=== PATIENT | male | born 1970 | race Caucasian/White ===

== ENCOUNTER 2017-02-01 11:31 | Inpatient (IN) | payer OTHER ==
[2017-02-01 12:07] LABS: Basophils % (Auto) 0.9 % (0.0-1.8); Eosinophils % (Auto) 4.1 % (0.0-4.3); Hematocrit 40.8 % (35.5-45.6); Hemoglobin 13.3 gm/dl (11.8-15.2); Mean Corpuscular HGB Conc 33 % (32-34); Mean Corpuscular Volume 79 fl (84-94); Platelet Count 265 K/mm3 (140-440); Red Blood Count 5.15 M/mm3 (3.65-5.03); Red Cell Distribution Width 14.2 % (13.2-15.2); White Blood Count 6.5 K/mm3 (4.5-11.0)
[2017-02-01 12:08] LABS: Mean Corpuscular Hemoglobin 26 pg (28-32)
[2017-02-01 12:24] LABS: Creatine Kinase MB 1.5 ng/mL (0.0-4.0)
[2017-02-01 12:25] LABS: Anion Gap 17 mmol/L; BUN/Creatinine Ratio 23; Blood Urea Nitrogen 14 mg/dL (9-20); Calcium 9.6 mg/dL (8.4-10.2); Carbon Dioxide 29 mmol/L (22-30); Chloride 96.9 mmol/L (98-107); Glucose 263 mg/dL (75-100); Potassium 4.3 mmol/L (3.6-5.0); Sodium 139 mmol/L (137-145)
[2017-02-01 12:50] LABS: Albumin 3.9 g/dL (3.9-5); Albumin/Globulin Ratio 1.2 %; Bilirubin,Direct 0.2 mg/dL (0-0.2); Bilirubin,Indirect 0.7 mg/dL; Bilirubin,Total 0.9 mg/dL (0.1-1.2); Total Protein 7.2 g/dL (6.3-8.2)
[2017-02-01 12:53] LABS: INR 1.03 (0.87-1.13)
[2017-02-01 12:54] LABS: Partial Thromboplastin Time 35.4 Sec. (24.2-36.6)
--- NOTE | 2017-02-01 13:34 | Emergency Department Report ---
ED Chest Pain HPI - General Chief Complaint: Chest Pain Stated Complaint: DIFFICULTY BREATHING Time Seen by Provider: 02/01/17 11:56 Source: patient Mode of arrival: Ambulatory Limitations: No Limitations - History of Present Illness Initial Comments: Patient states that he has had anterior chest tightness for the past 3 days. He complains of nausea, sweating and shortness of breath associated with this chest pain. He states the nausea is not ongoing. However, he does have mild persistent chest pain. The patient essentially response to the affirmative to multiple associated symptoms with his chest pain. History was obtained in Italian. However, the patient is a poor historian in his [place] language. He admits that he has run out of multiple medications "yesterday". She states she was admitted to [facility] in the past for workup of his heart condition. He claims that he was told he needs a heart transplant. However oddly he denies and appears to be totally unfamiliar with the concept of cardiac catheterization. He does not have a stent. He has not been told he had any prior blockages as far as he can tell me. He did not report a history of thyroid problems but does take levo thyroxine. MD Complaint: chest pain -: Gradual, days(s) Onset: during rest Pain Location: substernal Pain Radiation: none Severity: moderate Severity scale (0 -10): 7 Quality: tightness Consistency: now resolved (now improved) Improves With: nothing Worsens With: nothing Context: other (history of heart problems not otherwise specified) re: denies: nausea, vomting, diaphoresis, dyspnea Other Symptoms: denies: cough, fever, syncope Treatments Prior to Arrival: none - Related Data Home Medications Medication Instructions Recorded Confirmed Last Taken Carvedilol [Coreg] 25 mg PO BID 02/01/17 02/01/17 01/31/17 Digoxin [Lanoxin] 0.125 mg PO DAILY 02/01/17 02/01/17 01/31/17 Furosemide [Lasix TAB] 40 mg PO DAILY 02/01/17 02/01/17 01/31/17 Levothyroxine [Synthroid] 75 mcg PO QAM 02/01/17 02/01/17 01/31/17 Lisinopril [Prinivil] 5 mg PO DAILY 02/01/17 02/01/17 01/31/17 Spironolactone [Aldactone] 25 mg PO DAILY 02/01/17 02/01/17 01/31/17 glipiZIDE [Glipizide] 10 mg PO DAILY 02/01/17 02/01/17 01/31/17 Allergies Allergy/AdvReac Type Severity Reaction Status Date / Time No Known Allergies Allergy Unverified 02/01/17 11:42 Heart Score - HEART Score History: Moderately suspicious EKG: Non-specific Age: 45-65 Risk factors: 1-2 risk factors Troponin: < normal limit HEART Score: 4 ED Review of Systems ROS: Stated complaint: DIFFICULTY BREATHING Other details as noted in HPI Constitutional: denies: chills, fever Eyes: denies: eye pain, eye discharge, vision change ENT: denies: ear pain, throat pain Respiratory: denies: cough, shortness of breath, wheezing Cardiovascular: chest pain. denies: palpitations Endocrine: no symptoms reported Gastrointestinal: denies: abdominal pain, nausea, diarrhea Genitourinary: denies: urgency, dysuria Musculoskeletal: denies: back pain, joint swelling, arthralgia Skin: denies: rash, lesions Neurological: denies: headache, weakness, paresthesias Psychiatric: denies: anxiety, depression Hematological/Lymphatic: denies: easy bleeding, easy bruising ED Past Medical Hx - Past Medical History Hx Hypertension: Yes Hx Diabetes: Yes Additional medical history: Enlarged Heart - Surgical History Past Surgical History?: No - Social History Smoking Status: Never Smoker Substance Use Type: None - Medications Home Medications: Home Medications Medication Instructions Recorded Confirmed Last Taken Type Carvedilol [Coreg] 25 mg PO BID 02/01/17 02/01/17 01/31/17 History Digoxin [Lanoxin] 0.125 mg PO DAILY 02/01/17 02/01/17 01/31/17 History Furosemide [Lasix TAB] 40 mg PO DAILY 02/01/17 02/01/17 01/31/17 History Levothyroxine [Synthroid] 75 mcg PO QAM 02/01/17 02/01/17 01/31/17 History Lisinopril [Prinivil] 5 mg PO DAILY 02/01/17 02/01/17 01/31/17 History Spironolactone [Aldactone] 25 mg PO DAILY 02/01/17 02/01/17 01/31/17 History glipiZIDE [Glipizide] 10 mg PO DAILY 02/01/17 02/01/17 01/31/17 History ED Physical Exam - General Limitations: No Limitations General appearance: alert, in no apparent distress - Head Head exam: Present: atraumatic, normocephalic - Eye Eye exam: Present: normal appearance. Absent: scleral icterus - ENT ENT exam: Present: mucous membranes moist - Neck Neck exam: Present: normal inspection. Absent: tenderness, meningismus - Respiratory Respiratory exam: Present: normal lung sounds bilaterally. Absent: respiratory distress - Cardiovascular Cardiovascular Exam: Present: regular rate, normal rhythm. Absent: systolic murmur, diastolic murmur, rubs, gallop - GI/Abdominal GI/Abdominal exam: Present: soft, normal bowel sounds. Absent: distended, tenderness, guarding, rebound, rigid - Rectal Rectal exam: Present: deferred - Extremities Exam Extremities exam: Present: normal inspection - Back Exam Back exam: Present: normal inspection - Neurological Exam Neurological exam: Present: alert, oriented X3, CN II-XII intact. Absent: motor sensory deficit - Psychiatric Psychiatric exam: Present: normal affect, normal mood - Skin Skin exam: Present: warm, dry, intact, normal color. Absent: rash ED Course Vital Signs 02/01/17 02/01/17 02/01/17 11:36 12:15 12:30 Temperature 97.7 F Pulse Rate 84 98 H 95 H Respiratory 18 22 20 Rate Blood Pressure 116/72 125/82 126/74 O2 Sat by Pulse 95 97 98 Oximetry 02/01/17 13:00 Temperature Pulse Rate 88 Respiratory 23 Rate Blood Pressure 126/80 O2 Sat by Pulse Oximetry - Reevaluation(s) Reevaluation #1: Patient is given aspirin. He is admitted to the hospitalist service for further care and evaluation. Personally I would suspect he has a nonischemic cardiomyopathy. However we do not have benefit of his prior records. I do not think his left bundle branch block is new. However the patient has no knowledge of what his prior EKG showed more even what an EKG is despite just having one. 02/01/17 14:39 02/01/17 14:39 DAVID score - David Score Age > 65: (0) No Aspirin use within the Past 7 Days: (1) Yes 3 or more CAD Risk Factors: (0) No 2 or more Angina events in past 24 hrs: (0) No Known CAD with more than 50% Stenosis: (0) No Elevated Cardiac Markers: (0) No ST Deviation Greater than 0.5mm: (0) No DAVID Score: 1 ED Medical Decision Making - Lab Data Result diagrams: 02/01/17 11:51 02/01/17 11:51 Laboratory Results - last 24 hr 02/01/17 02/01/17 02/01/17 11:51 11:51 11:51 WBC 6.5 RBC 5.15 H Hgb 13.3 Hct 40.8 MCV 79 L MCH 26 L MCHC 33 RDW 14.2 Plt Count 265 Lymph % (Auto) 30.3 Falls % (Auto) 13.4 H Eos % (Auto) 4.1 Baso % (Auto) 0.9 Lymph # 2.0 Falls # 0.9 H Eos # 0.3 Baso # 0.1 Seg Neutrophils % 51.3 Seg Neutrophils # 3.3 PT INR APTT Sodium 139 Potassium 4.3 Chloride 96.9 L Carbon Dioxide 29 Anion Gap 17 BUN 14 Creatinine 0.6 L Estimated GFR > 60 BUN/Creatinine Ratio 23 Glucose 263 H Calcium 9.6 Magnesium Total Bilirubin Direct Bilirubin Indirect Bilirubin AST ALT Alkaline Phosphatase Total Creatine Kinase CK-MB (CK-2) CK-MB (CK-2) Rel Index Troponin T < 0.010 NT-Pro-B Natriuret Pep 2856 H Total Protein Albumin Albumin/Globulin Ratio TSH Free T4 02/01/17 02/01/17 02/01/17 11:51 11:51 11:51 WBC RBC Hgb Hct MCV MCH MCHC RDW Plt Count Lymph % (Auto) Falls % (Auto) Eos % (Auto) Baso % (Auto) Lymph # Falls # Eos # Baso # Seg Neutrophils % Seg Neutrophils # PT 14.0 INR 1.03 APTT 35.4 Sodium Potassium Chloride Carbon Dioxide Anion Gap BUN Creatinine Estimated GFR BUN/Creatinine Ratio Glucose Calcium Magnesium Total Bilirubin Direct Bilirubin Indirect Bilirubin AST ALT Alkaline Phosphatase Total Creatine Kinase 53 L CK-MB (CK-2) 1.5 CK-MB (CK-2) Rel Index 2.8 Troponin T NT-Pro-B Natriuret Pep Total Protein Albumin Albumin/Globulin Ratio TSH < 0.005 L Free T4 4.08 H 02/01/17 02/01/17 11:51 11:51 WBC RBC Hgb Hct MCV MCH MCHC RDW Plt Count Lymph % (Auto) Falls % (Auto) Eos % (Auto) Baso % (Auto) Lymph # Falls # Eos # Baso # Seg Neutrophils % Seg Neutrophils # PT INR APTT Sodium Potassium Chloride Carbon Dioxide Anion Gap BUN Creatinine Estimated GFR BUN/Creatinine Ratio Glucose Calcium Magnesium 2.00 Total Bilirubin 0.90 Direct Bilirubin 0.2 Indirect Bilirubin 0.7 AST 16 ALT 23 Alkaline Phosphatase 115 Total Creatine Kinase CK-MB (CK-2) CK-MB (CK-2) Rel Index Troponin T NT-Pro-B Natriuret Pep Total Protein 7.2 Albumin 3.9 Albumin/Globulin Ratio 1.2 TSH Free T4 - EKG Data -: EKG Interpreted by Me EKG shows normal: sinus rhythm Rate: normal - EKG Data When compared to previous EKG there are: previous EKG unavailable Interpretation: other (left bundle branch block) - Radiology Data interpreted by me: Chest x-ray shows no acute process Critical care attestation.: If time is entered above; I have spent that time in minutes in the direct care of this critically ill patient, excluding procedure time. ED Disposition Clinical Impression: Left bundle branch block Chest pain Qualifiers: Chest pain type: unspecified Qualified Code(s): R07.9 - Chest pain, unspecified Cardiomyopathy Qualifiers: Cardiomyopathy type: unspecified Qualified Code(s): I42.9 - Cardiomyopathy, unspecified Disposition: OP ADMIT IP TO THIS HOSP Is pt being admited?: Yes Does the pt Need Aspirin: Yes Condition: Stable Instructions: Chest Pain (ED) Time of Disposition: 14:42
--- NOTE | 2017-02-01 13:35 | XRay Report ---
Single view chest: History: Difficulty breathing. Findings: Cardiomegaly. Trachea is midline. Mild pulmonary venous congestion. No consolidation or pleural effusion. Impression: Cardiomegaly with mild pulmonary venous congestion.
[2017-02-01] MEDS ORDERED: ASPIRIN PO ONE (14:38)
[2017-02-01 15:16] LABS: Bilirubin,Urine NEG (Negative); Blood,Urine NEG (Negative); Ketones,Urine NEG (Negative); Leukocyte Esterase,Urine NEG (Negative); Nitrite,Urine NEG (Negative); Protein,Urine <15 mg/dL mg/dL (Negative); RBC,Urine < 1.0 /HPF (0.0-6.0); WBC,Urine < 1.0 /HPF (0.0-6.0)
--- NOTE | 2017-02-01 19:46 | History and Physical Report ---
History of Present Illness Date of examination: 02/01/17 Date of admission: 02/01/17 14:07 Chief complaint: CC :Chest pain for 3 days History of present illness: - History of Present Illness Initial Comments: Patient states that he has had anterior chest tightness for the past 3 days. He complains of nausea, sweating and shortness of breath associated with this chest pain. He states the nausea is not ongoing. However, he does have mild persistent chest pain. The patient essentially response to the affirmative to multiple associated symptoms with his chest pain. History was obtained in Maltese. However, the patient is a poor historian in his [place] language. He admits that he has run out of multiple medications "yesterday". Past Medical History Hx Hypertension: Yes Hx Diabetes: Yes CHF Hypothyroidism and Enlarged Heart - Surgical History Past Surgical History?: No - Social History Smoking Status: Never Smoker Substance Use Type: None - Medications Home Medications: Home Medications Medication Instructions Recorded Confirmed Last Taken Type Carvedilol [Coreg] 25 mg PO BID 02/01/17 02/01/17 01/31/17 History Digoxin [Lanoxin] 0.125 mg PO DAILY 02/01/17 02/01/17 01/31/17 History Furosemide [Lasix TAB] 40 mg PO DAILY 02/01/17 02/01/17 01/31/17 History Levothyroxine [Synthroid] 75 mcg PO QAM 02/01/17 02/01/17 01/31/17 History Lisinopril [Prinivil] 5 mg PO DAILY 02/01/17 02/01/17 01/31/17 History Spironolactone [Aldactone] 25 mg PO DAILY 02/01/17 02/01/17 01/31/17 History glipiZIDE [Glipizide] 10 mg PO DAILY 02/01/17 02/01/17 01/31/17 History Review of Systems Stated complaint: DIFFICULTY BREATHING Other details as noted in HPI Constitutional: denies: chills, fever Eyes: denies: eye pain, eye discharge, vision change ENT: denies: ear pain, throat pain Respiratory: denies: cough, shortness of breath, wheezing Cardiovascular: chest pain. denies: palpitations Endocrine: no symptoms reported Gastrointestinal: denies: abdominal pain, nausea, diarrhea Genitourinary: denies: urgency, dysuria Musculoskeletal: denies: back pain, joint swelling, arthralgia Skin: denies: rash, lesions Neurological: denies: headache, weakness, paresthesias Psychiatric: denies: anxiety, depression Hematological/Lymphatic: denies: easy bleeding, easy bruising Medications and Allergies Allergies Allergy/AdvReac Type Severity Reaction Status Date / Time No Known Allergies Allergy Unverified 02/01/17 11:42 Home Medications Medication Instructions Recorded Confirmed Last Taken Type Carvedilol [Coreg] 25 mg PO BID 02/01/17 02/01/17 01/31/17 History Digoxin [Lanoxin] 0.125 mg PO DAILY 02/01/17 02/01/17 01/31/17 History Furosemide [Lasix TAB] 40 mg PO DAILY 02/01/17 02/01/17 01/31/17 History Levothyroxine [Synthroid] 75 mcg PO QAM 02/01/17 02/01/17 01/31/17 History Lisinopril [Prinivil] 5 mg PO DAILY 02/01/17 02/01/17 01/31/17 History Spironolactone [Aldactone] 25 mg PO DAILY 02/01/17 02/01/17 01/31/17 History glipiZIDE [Glipizide] 10 mg PO DAILY 02/01/17 02/01/17 01/31/17 History Exam - Constitutional Vitals: Temp Pulse Resp BP Pulse Ox 98 F 99 H 20 125/69 96 02/01/17 19:39 02/01/17 19:39 02/01/17 19:39 02/01/17 19:39 02/01/17 19:39 General appearance: Present: no acute distress, well-nourished - EENT Eyes: Present: PERRL ENT: hearing intact, clear oral mucosa - Neck Neck: Present: supple, normal ROM - Respiratory Respiratory effort: normal Respiratory: bilateral: CTA - Cardiovascular Heart rate: 80 Rhythm: regular Heart Sounds: Present: S1 & S2. Absent: rub, click - Extremities Extremities: no ischemia, pulses intact, pulses symmetrical, No edema Peripheral Pulses: within normal limits - Abdominal General gastrointestinal: Present: soft, non-tender, non-distended, normal bowel sounds Male genitourinary: Present: normal - Integumentary Integumentary: Present: clear, warm, dry - Musculoskeletal Musculoskeletal: gait normal, strength equal bilaterally - Psychiatric Psychiatric: appropriate mood/affect, intact judgment & insight - Neurologic Neurologic: CNII-XII intact, moves all extremities - Allied Health Allied health notes reviewed: nursing, case management Results - Labs CBC & Chem 7: 02/02/17 04:17 02/02/17 04:17 Labs: Laboratory Last Values WBC 6.5 K/mm3 (4.5-11.0) 02/01/17 11:51 RBC 5.15 M/mm3 (3.65-5.03) H 02/01/17 11:51 Hgb 13.3 gm/dl (11.8-15.2) 02/01/17 11:51 Hct 40.8 % (35.5-45.6) 02/01/17 11:51 MCV 79 fl (84-94) L 02/01/17 11:51 MCH 26 pg (28-32) L 02/01/17 11:51 MCHC 33 % (32-34) 02/01/17 11:51 RDW 14.2 % (13.2-15.2) 02/01/17 11:51 Plt Count 265 K/mm3 (140-440) 02/01/17 11:51 Lymph % (Auto) 30.3 % (13.4-35.0) 02/01/17 11:51 [place] % (Auto) 13.4 % (0.0-7.3) H 02/01/17 11:51 Eos % (Auto) 4.1 % (0.0-4.3) 02/01/17 11:51 Baso % (Auto) 0.9 % (0.0-1.8) 02/01/17 11:51 Lymph # 2.0 K/mm3 (1.2-5.4) 02/01/17 11:51 [place] # 0.9 K/mm3 (0.0-0.8) H 02/01/17 11:51 Eos # 0.3 K/mm3 (0.0-0.4) 02/01/17 11:51 Baso # 0.1 K/mm3 (0.0-0.1) 02/01/17 11:51 Seg Neutrophils % 51.3 % (40.0-70.0) 02/01/17 11:51 Seg Neutrophils # 3.3 K/mm3 (1.8-7.7) 02/01/17 11:51 PT 14.0 Sec. (12.2-14.9) 02/01/17 11:51 INR 1.03 (0.87-1.13) 02/01/17 11:51 APTT 35.4 Sec. (24.2-36.6) 02/01/17 11:51 Sodium 139 mmol/L (137-145) 02/01/17 11:51 Potassium 4.3 mmol/L (3.6-5.0) 02/01/17 11:51 Chloride 96.9 mmol/L (98-107) L 02/01/17 11:51 Carbon Dioxide 29 mmol/L (22-30) 02/01/17 11:51 Anion Gap 17 mmol/L 02/01/17 11:51 BUN 14 mg/dL (9-20) 02/01/17 11:51 Creatinine 0.6 mg/dL (0.8-1.5) L 02/01/17 11:51 Estimated GFR > 60 ml/min 02/01/17 11:51 BUN/Creatinine Ratio 23 % 02/01/17 11:51 Glucose 263 mg/dL (75-100) H 02/01/17 11:51 Calcium 9.6 mg/dL (8.4-10.2) 02/01/17 11:51 Magnesium 2.00 mg/dL (1.7-2.3) 02/01/17 11:51 Total Bilirubin 0.90 mg/dL (0.1-1.2) 02/01/17 11:51 Direct Bilirubin 0.2 mg/dL (0-0.2) 02/01/17 11:51 Indirect Bilirubin 0.7 mg/dL 02/01/17 11:51 AST 16 units/L (5-40) 02/01/17 11:51 ALT 23 units/L (7-56) 02/01/17 11:51 Alkaline Phosphatase 115 units/L (35-129) 02/01/17 11:51 Total Creatine Kinase 53 units/L (55-170) L 02/01/17 11:51 CK-MB (CK-2) 1.5 ng/mL (0.0-4.0) 02/01/17 11:51 CK-MB (CK-2) Rel Index 2.8 (0-4) 02/01/17 11:51 Troponin T < 0.010 ng/mL (0.00-0.029) 02/01/17 18:34 NT-Pro-B Natriuret Pep 2856 pg/mL (0-450) H 02/01/17 11:51 Total Protein 7.2 g/dL (6.3-8.2) 02/01/17 11:51 Albumin 3.9 g/dL (3.9-5) 02/01/17 11:51 Albumin/Globulin Ratio 1.2 % 02/01/17 11:51 TSH < 0.005 mlU/mL (0.270-4.200) L 02/01/17 11:51 Free T4 4.08 ng/dL (0.76-1.46) H 02/01/17 11:51 Urine Color Yellow (Yellow) 02/01/17 14:56 Urine Turbidity Clear (Clear) 02/01/17 14:56 Urine pH 6.0 (5.0-7.0) 02/01/17 14:56 Ur Specific [place] 1.022 (1.003-1.030) 02/01/17 14:56 Urine Protein <15 mg/dl mg/dL (Negative) 02/01/17 14:56 Urine Glucose (UA) >=500 mg/dL (Negative) 02/01/17 14:56 Urine Ketones Neg mg/dL (Negative) 02/01/17 14:56 Urine Blood Neg (Negative) 02/01/17 14:56 Urine Nitrite Neg (Negative) 02/01/17 14:56 Urine Bilirubin Neg (Negative) 02/01/17 14:56 Urine Urobilinogen 2.0 mg/dL (<2.0) 02/01/17 14:56 Ur Leukocyte Esterase Neg (Negative) 02/01/17 14:56 Urine WBC (Auto) < 1.0 /HPF (0.0-6.0) 02/01/17 14:56 Urine RBC (Auto) < 1.0 /HPF (0.0-6.0) 02/01/17 14:56 Digoxin 0.4 ng/mL (0.9-2.0) L 02/01/17 11:50 Short CBC 02/01/17 02/02/17 Range/Units 11:51 04:17 WBC 6.5 5.8 (4.5-11.0) K/mm3 Hgb 13.3 12.6 (11.8-15.2) gm/dl Hct 40.8 38.8 (35.5-45.6) % Plt Count 265 235 (140-440) K/mm3 BMP 02/01/17 02/02/17 11:51 04:17 Sodium 139 138 Potassium 4.3 4.3 Chloride 96.9 L 97.9 L Carbon Dioxide 29 26 BUN 14 17 Creatinine 0.6 L 0.7 L Glucose 263 H 297 H Calcium 9.6 9.5 Cardiac Enzymes 02/01/17 02/01/17 02/01/17 Range/Units 11:51 11:51 14:45 Total Creatine Kinase 53 L (55-170) units/L CK-MB (CK-2) 1.5 (0.0-4.0) ng/mL Troponin T < 0.010 < 0.010 (0.00-0.029) ng/mL 02/01/17 02/01/17 02/01/17 Range/Units 18:34 21:55 22:00 Total Creatine Kinase 45 L (55-170) units/L CK-MB (CK-2) 1.3 (0.0-4.0) ng/mL Troponin T < 0.010 < 0.010 (0.00-0.029) ng/mL 02/02/17 02/02/17 Range/Units 04:17 04:17 Total Creatine Kinase 41 L (55-170) units/L CK-MB (CK-2) 1.4 (0.0-4.0) ng/mL Troponin T < 0.010 (0.00-0.029) ng/mL Liver Function 02/01/17 02/02/17 Range/Units 11:51 04:17 Total Bilirubin 0.90 0.70 (0.1-1.2) mg/dL Direct Bilirubin 0.2 (0-0.2) mg/dL AST 16 15 (5-40) units/L ALT 23 21 (7-56) units/L Alkaline Phosphatase 115 99 (35-129) units/L Albumin 3.9 3.5 L (3.9-5) g/dL Urine 02/01/17 Range/Units 14:56 Urine Color Yellow (Yellow) Urine pH 6.0 (5.0-7.0) Ur Specific [place] 1.022 (1.003-1.030) Urine Protein <15 mg/dl (Negative) mg/dL Urine Glucose (UA) >=500 (Negative) mg/dL - Imaging and Cardiology EKG: report reviewed Chest x-ray: report reviewed (Cardiomegaly with mild PVC) Assessment and Plan Advance Directives: Yes (Full code) VTE prophylaxis?: Chemical Plan of care discussed with patient/family: Yes - Patient Problems (1) Chest pain Current Visit: Yes Status: Acute Qualifiers: Chest pain type: unspecified Qualified Code(s): R07.9 - Chest pain, unspecified Plan to address problem: Chest pain w/u Cardiac enzymes and Lexiscan ordered. Diff Dx of Costochondritis and Reflux esophagitis. (2) HTN (hypertension) Current Visit: Yes Status: Chronic Qualifiers: Hypertension type: essential hypertension Qualified Code(s): I10 - Essential (primary) hypertension Plan to address problem: Cont antihypertensive (3) T2DM (type 2 diabetes mellitus) Current Visit: Yes Status: Chronic Qualifiers: Diabetes mellitus complication status: without complication Plan to address problem: Contiinue oral hypoglycemics and coverage (4) CHF (congestive heart failure) Current Visit: Yes Status: Chronic Qualifiers: Congestive heart failure type: combined Plan to address problem: Cont Lasix and Digoxin (5) Hypothyroidism (acquired) Current Visit: Yes Status: Chronic Plan to address problem: Cont Levothyoxine (6) DVT prophylaxis Current Visit: Yes Status: Acute Plan to address problem: On Lovenox
[2017-02-01] MEDS ORDERED: MILK OF MAGNESIA PO PRN (21:11)
[2017-02-01] MEDS ORDERED: PERCOCET 5/325 PO PRN (21:11)
[2017-02-01] MEDS ORDERED: AMBIEN PO PRN (21:11)
[2017-02-01] MEDS ORDERED: DILAUDID IV PRN (21:11)
[2017-02-01] MEDS ORDERED: TYLENOL PO PRN (21:11)
[2017-02-01] MEDS ORDERED: DULCOLAX PR PRN (21:11)
[2017-02-01] MEDS ORDERED: ZOFRAN IV PRN (21:11)
[2017-02-01] MEDS: ZESTRIL PO SCH (21:36)
[2017-02-01] MEDS: ALDACTONE PO SCH (22:37)
[2017-02-01] MEDS: COREG PO SCH (22:37)
[2017-02-01] MEDS: LASIX PO SCH (22:38)
[2017-02-01 22:53] LABS: Creatine Kinase MB 1.3 ng/mL (0.0-4.0)
[2017-02-02] MEDS: SYNTHROID PO SCH (05:08)
[2017-02-02 05:43] LABS: Basophils % (Auto) 0.5 % (0.0-1.8); Eosinophils % (Auto) 4.5 % (0.0-4.3); Hematocrit 38.8 % (35.5-45.6); Hemoglobin 12.6 gm/dl (11.8-15.2); Mean Corpuscular HGB Conc 33 % (32-34); Mean Corpuscular Volume 79 fl (84-94); Platelet Count 235 K/mm3 (140-440); Red Blood Count 4.88 M/mm3 (3.65-5.03); Red Cell Distribution Width 14.3 % (13.2-15.2); White Blood Count 5.8 K/mm3 (4.5-11.0)
[2017-02-02 05:46] LABS: Mean Corpuscular Hemoglobin 26 pg (28-32)
[2017-02-02 05:50] LABS: Creatine Kinase MB 1.4 ng/mL (0.0-4.0)
[2017-02-02 05:51] LABS: Alanine Aminotransferase 21 units/L (7-56); Albumin 3.5 g/dL (3.9-5); Albumin/Globulin Ratio 1.2 %; Alkaline Phosphatase 99 units/L (35-129); Anion Gap 18 mmol/L; BUN/Creatinine Ratio 24; Blood Urea Nitrogen 17 mg/dL (9-20); Calcium 9.5 mg/dL (8.4-10.2); Carbon Dioxide 26 mmol/L (22-30); Chloride 97.9 mmol/L (98-107); Glucose 297 mg/dL (75-100); Potassium 4.3 mmol/L (3.6-5.0); Sodium 138 mmol/L (137-145); Total Protein 6.5 g/dL (6.3-8.2)
[2017-02-02] MEDS ORDERED: LEXISCAN IV ONE ×2 (08:10→08:43)
--- NOTE | 2017-02-02 09:41 | Consultation ---
History of Present Illness Consult date: 02/02/17 Consult reason: chest pain History of present illness: Patient states that he has had anterior chest tightness for the past 3 days. He complains of nausea, sweating and shortness of breath associated with this chest pain. Pain was substernal lasting several hours, but has now resolved. Patient denies orthopnea, pnd, palpitations, dizziness and syncope. Past History Past Medical History: diabetes, hypertension, other (enlarged heart) Past Surgical History: No surgical history Social history: denies: smoking, alcohol abuse Family history: no significant family history Medications and Allergies Allergies Allergy/AdvReac Type Severity Reaction Status Date / Time No Known Allergies Allergy Unverified 02/01/17 11:42 Home Medications Medication Instructions Recorded Confirmed Last Taken Type Carvedilol [Coreg] 25 mg PO BID 02/01/17 02/01/17 01/31/17 History Digoxin [Lanoxin] 0.125 mg PO DAILY 02/01/17 02/01/17 01/31/17 History Furosemide [Lasix TAB] 40 mg PO DAILY 02/01/17 02/01/17 01/31/17 History Levothyroxine [Synthroid] 75 mcg PO QAM 02/01/17 02/01/17 01/31/17 History Lisinopril [Prinivil] 5 mg PO DAILY 02/01/17 02/01/17 01/31/17 History Spironolactone [Aldactone] 25 mg PO DAILY 02/01/17 02/01/17 01/31/17 History glipiZIDE [Glipizide] 10 mg PO DAILY 02/01/17 02/01/17 01/31/17 History Active Meds: Active Medications Acetaminophen (Tylenol) 650 mg PO Q4H PRN PRN Reason: Pain MILD(1-3)/Fever >100.5/LOPEZ Bisacodyl (Dulcolax) 10 mg [place] QDAY PRN PRN Reason: Constipation unrelieved by MOM Carvedilol (Coreg) 25 mg PO BID [facility] Last Admin: 02/01/17 22:37 Dose: 25 mg Digoxin (Lanoxin) 0.125 mg PO DAILY [facility] Furosemide (Lasix) 40 mg PO DAILY [facility] Last Admin: 02/01/17 22:38 Dose: 40 mg Glipizide (Glucotrol) 10 mg PO DAILY [facility] Hydromorphone HCl (Dilaudid) 0.5 mg IV Q3H PRN PRN Reason: Pain , Severe (7-10) Influenza Virus Vaccine Quadrival (Fluarix Quad [id number](36 Mos+) 0.5 ml IM .ONCE ONE Stop: 02/02/17 12:01 Insulin Aspart (Novolog) 0 units SUB-Q ACHS [facility] PRN Reason: Protocol Levothyroxine Sodium (Synthroid) 75 mcg PO 0600 [facility] Last Admin: 02/02/17 05:08 Dose: 75 mcg Lisinopril (Zestril) 5 mg PO DAILY [facility] Last Admin: 02/01/17 21:36 Dose: 5 mg Magnesium Hydroxide (Milk Of Magnesia) 30 ml PO Q4H PRN PRN Reason: Constipation Ondansetron HCl (Zofran) 4 mg IV Q8H PRN PRN Reason: N/V unrelieved by Reglan Oxycodone/Acetaminophen (Percocet 5/325) 1 tab PO Q6H PRN PRN Reason: Pain, Moderate (4-6) Last Admin: 02/01/17 22:38 Dose: 1 tab Pneumococcal Polyvalent Vaccine (Pneumovax 23) 0.5 ml IM .ONCE ONE Stop: 02/02/17 12:01 Spironolactone (Aldactone) 25 mg PO DAILY [facility] Last Admin: 02/01/17 22:37 Dose: 25 mg Zolpidem Tartrate (Ambien) 5 mg PO QHS PRN PRN Reason: Insomnia Review of Systems All systems: negative (pertinent positives in HPI) Physical Examination Vital Signs Temp Pulse Resp BP Pulse Ox 97.7 F 84 18 116/72 95 02/01/17 11:36 02/01/17 11:36 02/01/17 11:36 02/01/17 11:36 02/01/17 11:36 General appearance: no acute distress HEENT: Positive: PERRL, EOMI Cardiac: Positive: Reg Rate and Rhythm, S1/S2 Lungs: Positive: clear to auscultation Abdomen: Positive: Soft, Active Bowel Sounds Extremities: Present: normal Results 02/02/17 04:17 02/02/17 04:17 Cardiac Enzymes 02/01/17 02/01/17 02/01/17 Range/Units 11:51 11:51 22:00 AST 16 (5-40) units/L CK-MB (CK-2) 1.5 1.3 (0.0-4.0) ng/mL 02/02/17 02/02/17 Range/Units 04:17 04:17 AST 15 (5-40) units/L CK-MB (CK-2) 1.4 (0.0-4.0) ng/mL Coagulation 02/01/17 Range/Units 11: PT 14.0 (12.2-14.9) Sec. INR 1.03 (0.87-1.13) APTT 35.4 (24.2-36.6) Sec. CBC 02/01/17 02/02/17 Range/Units 11: 04:17 WBC 6.5 5.8 (4.5-11.0) K/mm3 RBC 5.15 H 4.88 (3.65-5.03) M/mm3 Hgb 13.3 12.6 (11.8-15.2) gm/dl Hct 40.8 38.8 (35.5-45.6) % Plt Count 265 235 (140-440) K/mm3 Lymph # 2.0 2.2 (1.2-5.4) K/mm3 [place] # 0.9 H 0.8 (0.0-0.8) K/mm3 Eos # 0.3 0.3 (0.0-0.4) K/mm3 Baso # 0.1 0.0 (0.0-0.1) K/mm3 Comprehensive Metabolic Panel 02/01/17 02/01/17 02/02/17 Range/Units 11: 11:51 04:17 Sodium 139 138 (137-145) mmol/L Potassium 4.3 4.3 (3.6-5.0) mmol/L Chloride 96.9 L 97.9 L (98-107) mmol/L Carbon Dioxide 29 26 (22-30) mmol/L BUN 14 17 (9-20) mg/dL Creatinine 0.6 L 0.7 L (0.8-1.5) mg/dL Glucose 263 H 297 H (75-100) mg/dL Calcium 9.6 9.5 (8.4-10.2) mg/dL Direct Bilirubin 0.2 (0-0.2) mg/dL Indirect Bilirubin 0.7 mg/dL AST 16 15 (5-40) units/L ALT 23 21 (7-56) units/L Alkaline Phosphatase 115 99 (35-129) units/L Total Protein 7.2 6.5 (6.3-8.2) g/dL Albumin 3.9 3.5 L (3.9-5) g/dL Assessment and Plan chest pain - troponin negative. chest pain resolved. CV risk factors include HTN , DM2. Plan for stress test today. DM2 - management per primary. HTN - maximize medical therapy "enlarged heart" - check echo
[2017-02-02] MEDS: ZESTRIL PO SCH (11:23)
[2017-02-02] MEDS: LASIX PO SCH (11:24)
[2017-02-02] MEDS: ALDACTONE PO SCH (11:24)
[2017-02-02] MEDS: LANOXIN PO SCH (11:24)
[2017-02-02] MEDS: COREG PO SCH ×2 (11:25→21:47)
[2017-02-02] MEDS: GLUCOTROL PO SCH (11:25)
--- NOTE | 2017-02-02 11:48 | Progress Note ---
Assessment and Plan Assessment and plan: Chest pain - troponin negative. chest pain resolved. CV risk factors include HTN , DM2. Plan for stress test today. DM2. Continue Accu-Cheks and sliding scale insulin. Hypertension. Continue antihypertensive medications. History of cardiomegaly. Follow-up echocardiogram. History Interval history: No new issues overnight. Hospitalist Physical - Constitutional Vitals: Temp Pulse Resp BP Pulse Ox 98.2 F 97 H 18 94/52 97 02/02/17 04:41 02/02/17 09:52 02/02/17 04:41 02/02/17 09:52 02/02/17 04:41 General appearance: Present: no acute distress - EENT Eyes: Present: PERRL, EOM intact ENT: hearing intact, clear oral mucosa, dentition normal - Neck Neck: Present: supple, normal ROM - Respiratory Respiratory effort: normal Respiratory: bilateral: CTA - Cardiovascular Rhythm: regular Heart Sounds: Present: S1 & S2. Absent: gallop, rub - Extremities Extremities: no ischemia, No edema, Full ROM - Abdominal General gastrointestinal: soft, non-tender, non-distended, normal bowel sounds - Integumentary Integumentary: Present: clear, warm, dry - Neurologic Neurologic: CNII-XII intact, moves all extremities Results - Labs CBC & Chem 7: 02/02/17 04:17 02/02/17 04:17 Labs: Laboratory Last Values WBC 5.8 K/mm3 (4.5-11.0) 02/02/17 04:17 RBC 4.88 M/mm3 (3.65-5.03) 02/02/17 04:17 Hgb 12.6 gm/dl (11.8-15.2) 02/02/17 04:17 Hct 38.8 % (35.5-45.6) 02/02/17 04:17 MCV 79 fl (84-94) L 02/02/17 04:17 MCH 26 pg (28-32) L 02/02/17 04:17 MCHC 33 % (32-34) 02/02/17 04:17 RDW 14.3 % (13.2-15.2) 02/02/17 04:17 Plt Count 235 K/mm3 (140-440) 02/02/17 04:17 Lymph % (Auto) 37.8 % (13.4-35.0) H 02/02/17 04:17 [place] % (Auto) 13.3 % (0.0-7.3) H 02/02/17 04:17 Eos % (Auto) 4.5 % (0.0-4.3) H 02/02/17 04:17 Baso % (Auto) 0.5 % (0.0-1.8) 02/02/17 04:17 Lymph # 2.2 K/mm3 (1.2-5.4) 02/02/17 04:17 [place] # 0.8 K/mm3 (0.0-0.8) 02/02/17 04:17 Eos # 0.3 K/mm3 (0.0-0.4) 02/02/17 04:17 Baso # 0.0 K/mm3 (0.0-0.1) 02/02/17 04:17 Seg Neutrophils % 43.9 % (40.0-70.0) 02/02/17 04:17 Seg Neutrophils # 2.5 K/mm3 (1.8-7.7) 02/02/17 04:17 PT 14.0 Sec. (12.2-14.9) 02/01/17 11:51 INR 1.03 (0.87-1.13) 02/01/17 11:51 APTT 35.4 Sec. (24.2-36.6) 02/01/17 11:51 Sodium 138 mmol/L (137-145) 02/02/17 04:17 Potassium 4.3 mmol/L (3.6-5.0) 02/02/17 04:17 Chloride 97.9 mmol/L (98-107) L 02/02/17 04:17 Carbon Dioxide 26 mmol/L (22-30) 02/02/17 04:17 Anion Gap 18 mmol/L 02/02/17 04:17 BUN 17 mg/dL (9-20) 02/02/17 04:17 Creatinine 0.7 mg/dL (0.8-1.5) L 02/02/17 04:17 Estimated GFR > 60 ml/min 02/02/17 04:17 BUN/Creatinine Ratio 24 % 02/02/17 04:17 Glucose 297 mg/dL (75-100) H 02/02/17 04:17 POC Glucose 261 (70-105) H 02/01/17 22:11 Hemoglobin A1c 11.8 % (4-6) H 02/01/17 22:00 Calcium 9.5 mg/dL (8.4-10.2) 02/02/17 04:17 Magnesium 2.00 mg/dL (1.7-2.3) 02/01/17 11:51 Total Bilirubin 0.70 mg/dL (0.1-1.2) 02/02/17 04:17 Direct Bilirubin 0.2 mg/dL (0-0.2) 02/01/17 11:51 Indirect Bilirubin 0.7 mg/dL 02/01/17 11:51 AST 15 units/L (5-40) 02/02/17 04:17 ALT 21 units/L (7-56) 02/02/17 04:17 Alkaline Phosphatase 99 units/L (35-129) 02/02/17 04:17 Total Creatine Kinase 41 units/L (55-170) L 02/02/17 04:17 CK-MB (CK-2) 1.4 ng/mL (0.0-4.0) 02/02/17 04:17 CK-MB (CK-2) Rel Index 3.4 (0-4) 02/02/17 04:17 Troponin T < 0.010 ng/mL (0.00-0.029) 02/02/17 04:17 NT-Pro-B Natriuret Pep 2856 pg/mL (0-450) H 02/01/17 11:51 Total Protein 6.5 g/dL (6.3-8.2) 02/02/17 04:17 Albumin 3.5 g/dL (3.9-5) L 02/02/17 04:17 Albumin/Globulin Ratio 1.2 % 02/02/17 04:17 TSH < 0.005 mlU/mL (0.270-4.200) L 02/01/17 11:51 Free T4 4.08 ng/dL (0.76-1.46) H 02/01/17 11:51 Urine Color Yellow (Yellow) 02/01/17 14:56 Urine Turbidity Clear (Clear) 02/01/17 14:56 Urine pH 6.0 (5.0-7.0) 02/01/17 14:56 Ur Specific [place] 1.022 (1.003-1.030) 02/01/17 14:56 Urine Protein <15 mg/dl mg/dL (Negative) 02/01/17 14:56 Urine Glucose (UA) >=500 mg/dL (Negative) 02/01/17 14:56 Urine Ketones Neg mg/dL (Negative) 02/01/17 14:56 Urine Blood Neg (Negative) 02/01/17 14:56 Urine Nitrite Neg (Negative) 02/01/17 14:56 Urine Bilirubin Neg (Negative) 02/01/17 14:56 Urine Urobilinogen 2.0 mg/dL (<2.0) 02/01/17 14:56 Ur Leukocyte Esterase Neg (Negative) 02/01/17 14:56 Urine WBC (Auto) < 1.0 /HPF (0.0-6.0) 02/01/17 14:56 Urine RBC (Auto) < 1.0 /HPF (0.0-6.0) 02/01/17 14:56 Digoxin 0.4 ng/mL (0.9-2.0) L 02/01/17 11:50
[2017-02-02] MEDS ORDERED: Fluarix Quad 2017-2018(36 MOS+ IM ONE (12:00)
[2017-02-02] MEDS ORDERED: PNEUMOVAX 23 IM ONE (12:00)
[2017-02-02] MEDS: NOVOLOG SUB-Q SCH ×3 (13:06→21:49)
[2017-02-02 14:50] LABS: Creatine Kinase MB 1.3 ng/mL (0.0-4.0)
[2017-02-03] MEDS: SYNTHROID PO SCH (05:18)
--- NOTE | 2017-02-03 08:57 | Progress Note ---
Assessment and Plan chest pain - troponin negative. chest pain resolved. CV risk factors include HTN , DM2. Stress test yesterday showed fixed anteroseptal defect with EF 30%. Recommend maximal medical therapy with BB, ASA, high intensity statin and ACEi. DM2 - management per primary. HTN - maximize medical therapy "enlarged heart" - Echo pending Patient may be discharged today with follow up with [facility] out patient within 1 week. Subjective Date of service: 02/03/17 Interval history: No acute events. Resting comfortably. No chest pain or SOB. Objective Vital Signs Temp Pulse Resp BP BP Pulse Ox 02/03/17 08:50 97.4 F L 85 18 99/69 92 02/03/17 04:22 79 113/57 96 02/03/17 04:00 90 02/02/17 23:49 98.1 F 78 18 107/66 95 02/02/17 19:54 98.4 F 87 18 117/64 97 02/02/17 16:17 97.8 F 82 18 109/64 97 02/02/17 12:02 97.9 F 84 18 116/56 96 02/02/17 09:52 97 H 94/52 02/02/17 09:51 99 H 99/63 02/02/17 09:50 100 H 94/56 02/02/17 09:49 101 H 95/54 02/02/17 09:48 102 H 89/50 02/02/17 09:47 105 H 110/65 02/02/17 09:39 82 116/67 - Physical Examination HEENT: Positive: PERRL, EOMI Abdomen: Positive: Soft, Active Bowel Sounds Extremities: Present: normal - Labs and Meds Cardiac Enzymes 02/02/17 Range/Units 13:57 CK-MB (CK-2) 1.3 (0.0-4.0) ng/mL - Imaging and Cardiology EKG: report reviewed
[2017-02-03] MEDS: GLUCOTROL PO SCH (09:23)
[2017-02-03] MEDS: LASIX PO SCH (09:23)
[2017-02-03] MEDS: NOVOLOG SUB-Q SCH (09:23)
[2017-02-03] MEDS: ZESTRIL PO SCH (09:28)
[2017-02-03] MEDS: COREG PO SCH (09:28)
[2017-02-03] MEDS: LANOXIN PO SCH (09:32)
[2017-02-03] MEDS ORDERED: ALDACTONE PO SCH (10:00)
[2017-02-03] MEDS ORDERED: BABY ASPIRIN PO SCH (10:00)
--- NOTE | 2017-02-03 10:00 | Discharge Summary ---
Providers - Providers Date of Admission: 02/01/17 14:07 Date of discharge: 02/03/17 Attending physician: FAITH CALL 02/01/17 21:11 Consult to Physician [CONS] Routine Consulting Provider: BRANDY CAMPBELL Reason For Exam: [facility] Place consult to:: [facility] Notified:: y Phone number called:: [phone] Was contact made?: Yes If yes, spoke with:: joe Time called:: 08:25 Comment:: added to list Primary care physician: ASSISTANT QUALITY MANAGER Hospitalization Reason for admission: cp Condition: Stable Hospital course: 46-year-old male with significant past medical history of hypertension, diabetes mellitus type 2 and hyperlipidemia who presented to the emergency department with complaints of anterior chest tightness for 3 days prior to admission. Patient was evaluated by cardiology in consultation and recommended stress test and echocardiogram. Findings revealed fixed anteroseptal defect with EF 30%. Cardiology recommended maximal medical therapy with BB, ASA, high intensity statin and ACEi. Patient reports that he has been pain-free since hospitalization. Patient is felt to have received maximal hospital benefit. Therefore, patient will be discharged home. Echocardiogram is pending and can be followed up as an outpatient with [facility]. Dedicated discharge time 32 minutes. - Discharge Diagnoses (1) GERD (gastroesophageal reflux disease) Status: Acute (2) Chest pain Status: Acute Qualifiers: Chest pain type: unspecified Qualified Code(s): R07.9 - Chest pain, unspecified (3) HTN (hypertension) Status: Chronic Qualifiers: Hypertension type: essential hypertension Qualified Code(s): I10 - Essential (primary) hypertension (4) Hypothyroidism (acquired) Status: Chronic (5) T2DM (type 2 diabetes mellitus) Status: Chronic Qualifiers: Diabetes mellitus complication status: without complication Core Measure Documentation - Palliative Care Palliative Care/ Comfort Measures: Not Applicable - Core Measures Any of the following diagnoses?: none Exam - Constitutional Vitals: Temp Pulse Resp BP Pulse Ox 97.4 F L 85 18 99/69 92 02/03/17 08:50 02/03/17 09:32 02/03/17 08:50 02/03/17 09:28 02/03/17 08:50 General appearance: Present: no acute distress, well-nourished - EENT Eyes: Present: PERRL ENT: hearing intact, clear oral mucosa - Neck Neck: Present: supple, normal ROM - Respiratory Respiratory effort: normal Respiratory: bilateral: CTA - Cardiovascular Heart Sounds: Present: S1 & S2. Absent: rub, click - Extremities Extremities: pulses symmetrical, No edema Peripheral Pulses: within normal limits - Abdominal General gastrointestinal: Present: soft, non-tender, non-distended, normal bowel sounds Male genitourinary: Present: normal - Integumentary Integumentary: Present: clear, warm, dry - Musculoskeletal Musculoskeletal: gait normal, strength equal bilaterally - Psychiatric Psychiatric: appropriate mood/affect, intact judgment & insight - Neurologic Neurologic: CNII-XII intact, moves all extremities Plan Activity: no restrictions Weight Bearing Status: Full Weight Bearing Diet: low cholesterol, low salt, diabetic Follow up with: PRIMARY CARE,MD [Primary Care Provider] - 3-5 Days Prescriptions: Aspirin [Aspirin BABY CHEW TAB] 81 mg PO QDAY #30 tab.chew AtorvaSTATin [Lipitor] 40 mg PO QHS #30 tablet Carvedilol [Coreg] 25 mg PO BID #60 tablet Digoxin [Lanoxin] 0.125 mg PO DAILY #30 tablet Furosemide [Lasix TAB] 40 mg PO DAILY #30 tablet glipiZIDE [Glipizide] 10 mg PO DAILY #30 tablet Levothyroxine [Synthroid] 75 mcg PO QAM #30 tablet Lisinopril [Prinivil] 5 mg PO DAILY #30 tablet oxyCODONE /ACETAMINOPHEN [Percocet 5/325 mg] 1 tab PO Q6H PRN #10 tablet PRN Reason: Pain, Moderate (4-6) Spironolactone [Aldactone] 12.5 mg PO QDAY #30 tablet
[2017-02-03 12:57] VITALS: BP 101/52
--- NOTE | 2017-02-05 14:33 | Treadmill Report ---
LEFT VENTRICLE: Left ventricle is severely dilated. Perfusion study demonstrates fairly homogeneous uptake of the tracer in all segments with no significant perfusion defects demonstrated. Gated analysis demonstrates severe left ventricular systolic dysfunction with ejection fraction 31%. CONCLUSION: Evidence of a dilated cardiomyopathy, moderately severe left ventricular systolic dysfunction, ejection fraction 31%. There are no significant perfusion defects suggesting a dilated nonischemic cardiomyopathy. Clinical correlation is recommended. JOB# [id number] CA/NTS
== END 2017-02-03 14:32 | disposition home or self-care (01) | DRG 392 ==
LOC: ED 11:31 → 4A 14:07
PROVIDERS: ADMIT Internal Medicine; ATTEND Hospitalist
PROC: 3E0234Z Introduction of Serum, Toxoid and Vaccine into Muscle, Percutaneous Approach (ICD-10-PCS; principal; 2017-02-01)
DX: K21.9 Gastro-esophageal reflux disease without esophagitis (principal); I44.7 Left bundle-branch block, unspecified; E11.9 Type 2 diabetes mellitus without complications; E03.9 Hypothyroidism, unspecified; I50.9 Heart failure, unspecified; I11.0 Hypertensive heart disease with heart failure; Z23 Encounter for immunization; Z79.899 Other long term (current) drug therapy
CPT/HCPCS: 36415; 71010; 78452; 80048; 80053; 80074; 80162; 81001; 82550; 82553; 82962; 83036; 83735; 83880; 84439; 84443; 84484; 85025; 85610; 85730; 90686; 90732; 93005; 93010; 93017; 93306; 99285; A9270-GY; A9502; J1815; J2785